=== PATIENT | male | born 1985 | race African-American/Black ===

== ENCOUNTER 2020-08-05 07:25 | Day surgery (SDC) | payer OTHER ==
[~2020-08-05] VITALS: Ht 188 cm; Wt 106.3 kg
[2020-08-05 07:47] VITALS: BP 138/86
[2020-08-05 12:39] VITALS: BP 128/79
== END 2020-08-05 12:45 ==
LOC: DS 07:25 → OR 09:00 → DS 12:45
PROVIDERS: ATTEND Internal Medicine Gastroenterology
DX: K51.20 Ulcerative (chronic) proctitis without complications (principal); Z86.010 Personal history of colon polyps
CPT/HCPCS: 45378; J1200; J1610; J2250; J2310; J3010; J3490